=== PATIENT | female | born 1985 | race Caucasian/White ===

== ENCOUNTER 2018-01-20 07:45 | Emergency (ER) | payer OTHER ==
[~2018-01-20] VITALS: Ht 162.6 cm; Wt 54.4 kg
[~2018-01-20 07:45] MED LIST: ACET1TAB43 PO; DOCU100C37 PO; FERR325T18 PO; IBUP-1773 PO; PREN1TAB71 PO
[2018-01-20] MEDS ORDERED: methylPREDNISolone 125 MG (Solu-MEDROL) VIAL IVP ONE (08:15)
[2018-01-20] MEDS ORDERED: raNItidine 50 MG/2 ML INJ (ZANTAC) IV ONE (08:15)
[2018-01-20] MEDS ORDERED: diphenhydrAMINE 50 MG/ML INJ (BENADRYL) IVP ONE (08:15)
[2018-01-20 08:31] LABS: BASOPHILS # (AUTO) 0.1 10^3/uL (0.0-0.1); BASOPHILS % (AUTO) 1 % (0-10); EOSINOPHILS # (AUTO) 0.1 10^3/uL (0.0-0.3); EOSINOPHILS % (AUTO) 1 % (0-10); HEMATOCRIT 35 % (35-52); LYMPHOCYTES # (AUTO) 1.6 X 10^3 (1.0-4.0); LYMPHOCYTES % (AUTO) 20 % (12-44); MEAN CORPUSCULAR HEMOGLOBIN 33 PG (25-34); MEAN CORPUSCULAR HGB CONC 34 G/DL (32-36); MEAN CORPUSCULAR VOLUME 96 FL (80-99); MEAN PLATELET VOLUME 10.9 FL (7.4-10.4); MONOCYTES # (AUTO) 0.5 X 10^3 (0.0-1.0); MONOCYTES % (AUTO) 6 % (0-12); NEUTROPHILS # (AUTO) 5.8 X 10^3 (1.8-7.8); NEUTROPHILS % (AUTO) 73 % (42-75); PLATELET COUNT 170 10^3/uL (130-400); RED BLOOD COUNT 3.66 10^6/uL (4.35-5.85)
[2018-01-20 08:50] LABS: ALANINE AMINOTRANSFERASE 17 U/L (0-55); ALBUMIN 3.8 GM/DL (3.2-4.5); ALKALINE PHOSPHATASE 54 U/L (40-136); BILIRUBIN,TOTAL 2.4 MG/DL (0.1-1.0); BUN/CREATININE RATIO 19; CALCIUM 8.8 MG/DL (8.5-10.1); CARBON DIOXIDE 26 MMOL/L (21-32); CHLORIDE 102 MMOL/L (98-107); CREATININE SERUM 0.81 MG/DL (0.60-1.30); GFR ESTIMATED > 60; GLUCOSE 100 MG/DL (70-105); POTASSIUM 4.1 MMOL/L (3.6-5.0); SODIUM 135 MMOL/L (135-145); TOTAL PROTEIN 6.5 GM/DL (6.4-8.2)
[2018-01-20 09:55] LABS: BILIRUBIN,URINE NEGATIVE (NEGATIVE); CLARITY,URINE CLEAR; COLOR,URINE AMBER; GLUCOSE, URINE (UA) NEGATIVE (NEGATIVE); KETONES,URINE NEGATIVE (NEGATIVE); LEUKOCYTE ESTERASE ,URINE 1+ (NEGATIVE); NITRITE,URINE NEGATIVE (NEGATIVE); PH,URINE 6 (5-9); PROTEIN,URINE 1+ (NEGATIVE); UROBILINOGEN,URINE NORMAL (NORMAL)
[2018-01-20 10:03] LABS: BACTERIA,URINE MODERATE /HPF; RBC,URINE RARE /HPF; WBC,URINE RARE /HPF
[2018-01-20] MEDS ORDERED: NS IV 1000 ML 1,000 ML IV ONE (10:41)
--- NOTE | 2018-01-20 11:20 | ED General ---
General Chief Complaint: Allergic Reaction Stated Complaint: THROAT ISSUES,FACE SWELLING Nursing Triage Note: Pt ambulated to room nine w/o difficulty. Reports being bitten by a spider last thursday and was put on Amoxacillin, then began to experience a rash and itching of the hands. PCP swithced pt to another antibiotic and PO predisone, rash of the lower extremities broke out directly after. Pt presents today verbailizing throat discomfort and facial/periorbital swelling. Nursing Sepsis Screen: No Definite Risk Source of Information: Patient Exam Limitations: No Limitations History of Present Illness Date Seen by Provider: Jan 20, 2018 Time Seen by Provider: 08:00 Initial Comments This 32-year-old young lady presents to the emergency room with complaints of lip, face, and throat swelling. She was bitten by a brown recluse 9 days ago. She was started on Augmentin at that time but developed swelling, particularly on her lower extremities, and was therefore treated with prednisone. Her antibiotic was changed to Bactrim. She then developed a rash on her leg which has improved. Today she woke with the swelling of the face, throat, and lips as well as abdominal discomfort. She took Benadryl 25 mg before coming to the emergency room. She has no prior history of allergies or angioedema. Allergies and Home Medications Allergies Coded Allergies: amoxicillin (Verified Allergy, Severe, angioedema, 01/20/18) Questionable allergy as patient was exposed to brown recluse of venom, Augmentin, and Bactrim in close proximity. clavulanic acid (Verified Allergy, Severe, angioedema, 01/20/18) Questionable allergy as patient was exposed to brown recluse of venom, Augmentin, and Bactrim in close proximity. sulfamethoxazole (Verified Allergy, Severe, Angioedema, 01/20/18) Questionable allergy as patient was exposed to brown recluse venom, Augmentin, and Bactrim in close proximity. trimethoprim (Verified Allergy, Severe, Angioedema, 01/20/18) Questionable allergy as patient was exposed to brown recluse venom, Augmentin, and Bactrim in close proximity. Uncoded Allergies: brown recluse venum (Allergy, Severe, Angioedema, 01/20/18) Questionable allergy as patient was exposed to brown recluse of venom, Augmentin, and Bactrim in close proximity. Home Medications Acetaminophen with Codeine 1 Each Tablet, 1-2 TAB PO Q4H PRN for MODERATE TO SEVERE PAIN Prescribed by: YANNI SCOTT on 11/11/15 1031 Docusate Sodium 100 Mg Capsule, 100 MG PO BID Prescribed by: YANNI SCOTT on 11/11/15 1031 Epinephrine 0.3 Mg/0.3 Ml Auto.injct, 0.3 MG IJ UD PRN for SHORTNESS OF BREATH For severe allergic reaction involving swelling of the throat or difficulty breathing Prescribed by: KATI ALEXANDRA on 01/20/18 1131 Famotidine 20 Mg Tablet, 20 MG PO BID Prescribed by: KATI ALEXANDRA on 01/20/18 1131 Ferrous Sulfate 325 Mg Tablet, 325 MG PO DAILY Prescribed by: YANNI SCOTT on 11/11/15 1031 Ibuprofen 600 Mg Tablet, 600 MG PO Q6H Prescribed by: YANNI SCOTT on 11/11/15 1031 Prednisone 10 Mg Tab, 3 TAB PO UD Take 3 daily for 3 days, then 2 daily for 3 days, then 1 daily for 3 days Prescribed by: KATI ALEXANDRA on 01/20/18 1131 Vit/Iron Fumarate/FA 1 Each Tablet, 1 EACH PO DAILY, (Reported) Patient Home Medication List Home Medication List Reviewed: Yes Review of Systems Constitutional: no symptoms reported EENTM: see HPI Respiratory: no symptoms reported Cardiovascular: no symptoms reported Gastrointestinal: see HPI Genitourinary: no symptoms reported : No Musculoskeletal: no symptoms reported Skin: see HPI Psychiatric/Neurological: No Symptoms Reported Hematologic/Lymphatic: No Symptoms Reported Immunological/Allergic: see HPI Past [id number] Hx Past Med/Social Hx: Reviewed and Corrections made Patient Social History Former Smoker, Quit: Jul 12, 2012 Recent Foreign Travel: No Contact w/Someone Who Travel: No Recent Infectious Disease Expo: No Recent Hopitalizations: No Physical Abuse: No Sexual Abuse: No Mistreated: No Fear: No Immunizations Up To Date Tetanus Booster (TDap): Less than 5yrs Seasonal Allergies Seasonal Allergies: No Past Medical History Surgeries: No Respiratory: No Currently Using CPAP: No Currently Using BIPAP: No Cardiac: No Neurological: No : No Hx : 1 Hx Para: 1 Hx Total # of Abortions (Sp): 0 Reproductive Disorders: No Sexually Transmitted Disease: No HIV/AIDS: No Genitourinary: No Gastrointestinal: No Musculoskeletal: No Endocrine: No HEENT: No Cancer: No Psychosocial: No Nursing Suicide Risk Score: 1 Integumentary: Yes Recent Skin Changes (brown recluse bite right lateral thigh) Adverse Reaction/Blood Tranf: No Family Medical History Reviewed Nursing Family Hx Thyroid disease G8 SISTER (SISTER THYROID CANCER AT AGE 19YRS) Physical Exam Vital Signs Vital Signs - First Documented 01/20/18 07:50 Temp 97.8 Pulse 91 Resp 20 B/P (MAP) 108/70 (83) Pulse Ox 100 O2 Delivery Room Air Capillary Refill : Less Than 3 Seconds Height, Weight, BMI Height: 5'4.00" Weight: 120lbs. 0.0oz. [id number]; 27.0 BMI Method:Estimated General Appearance: No Apparent Distress, WD/WN HEENT: PERRL/EOMI, Other (edema of the lips, eyelids, and soft palate noted) Neck: Normal Inspection Respiratory: Lungs Clear, Normal Breath Sounds, No Accessory Muscle Use, No Respiratory Distress Cardiovascular: Regular Rate, Rhythm, No Edema, No Murmur Gastrointestinal: Normal Bowel Sounds, Non Tender, Soft Extremity: Normal Capillary Refill, Normal Inspection, No Pedal Edema Neurologic/Psychiatric: Alert, Oriented x3, No Motor/Sensory Deficits, Normal Mood/Affect, retail cashier II-XII Norm as Tested Skin: Warm/Dry, Other (there is a dusky eschared lesion on the right lateral thigh with surrounding erythema. Appears to be a well-healing spider bite) Progress/Results/Core Measures Suspected Sepsis Recent Fever Within 48 Hours: No Infection Criteria Present: None New/Unexplained Altered Menta: No Sepsis Screen: No Definite Risk SIRS Temperature:97.8 Pulse: 91 Respiratory Rate: 20 Laboratory Tests 01/20/18 08:26: White Blood Count 8.0 Blood Pressure 108 /70 Mean: 83 Laboratory Tests 01/20/18 08:26: Creatinine 0.81, Platelet Count 170, Total Bilirubin 2.4H Results/Orders Lab Results Laboratory Tests Test 01/20/18 08:26 01/20/18 09:43 Range/Units White Blood Count 8.0 4.3-11.0 10^3/uL Red Blood Count 3.66 L 4.35-5.85 10^6/uL Hemoglobin 12.0 11.5-16.0 G/DL Hematocrit 35 35-52 % Mean Corpuscular Volume 96 80-99 FL Mean Corpuscular Hemoglobin 33 25-34 PG Mean Corpuscular Hemoglobin Concent 34 32-36 G/DL Red Cell Distribution Width 12.0 10.0-14.5 % Platelet Count 170 130-400 10^3/uL Mean Platelet Volume 10.9 H 7.4-10.4 FL Neutrophils (%) (Auto) 73 42-75 % Lymphocytes (%) (Auto) 20 12-44 % Monocytes (%) (Auto) 6 0-12 % Eosinophils (%) (Auto) 1 0-10 % Basophils (%) (Auto) 1 0-10 % Neutrophils # (Auto) 5.8 1.8-7.8 X 10^3 Lymphocytes # (Auto) 1.6 1.0-4.0 X 10^3 Monocytes # (Auto) 0.5 0.0-1.0 X 10^3 Eosinophils # (Auto) 0.1 0.0-0.3 10^3/uL Basophils # (Auto) 0.1 0.0-0.1 10^3/uL Sodium Level 135 135-145 MMOL/L Potassium Level 4.1 3.6-5.0 MMOL/L Chloride Level 102 98-107 MMOL/L Carbon Dioxide Level 26 21-32 MMOL/L Anion Gap 7 5-14 MMOL/L Blood Urea Nitrogen 15 7-18 MG/DL Creatinine 0.81 0.60-1.30 MG/DL Estimat Glomerular Filtration Rate > 60 BUN/Creatinine Ratio 19 Glucose Level 100 70-105 MG/DL Calcium Level 8.8 8.5-10.1 MG/DL Total Bilirubin 2.4 H 0.1-1.0 MG/DL Aspartate Amino Transf (AST/SGOT) 18 5-34 U/L Alanine Aminotransferase (ALT/SGPT) 17 0-55 U/L Alkaline Phosphatase 54 40-136 U/L Total Protein 6.5 6.4-8.2 GM/DL Albumin 3.8 3.2-4.5 GM/DL Serum Test, Qualitative NEGATIVE NEGATIVE Urine Color JAMIR H Urine Clarity CLEAR Urine pH 6 5-9 Urine Specific [place] 1.015 L 1.016-1.022 Urine Protein 1+ H NEGATIVE Urine Glucose (UA) NEGATIVE NEGATIVE Urine Ketones NEGATIVE NEGATIVE Urine Nitrite NEGATIVE NEGATIVE Urine Bilirubin NEGATIVE NEGATIVE Urine Urobilinogen NORMAL NORMAL MG/DL Urine Leukocyte Esterase 1+ H NEGATIVE Urine RBC (Auto) 1+ H NEGATIVE Urine RBC RARE /HPF Urine WBC RARE /HPF Urine Squamous Epithelial Cells 2-5 /HPF Urine Crystals NONE /LPF Urine Bacteria MODERATE H /HPF Urine Casts NONE /LPF Urine Mucus SMALL H /LPF Urine Culture Indicated NO Micro Results Microbiology 01/20/18 Urine Culture - Preliminary, Resulted Sent To [facility] My Orders Orders - KATI JACOBS MD Diphenhydramine Injection (Benadryl Inje (01/20/18 08:15) Ranitidine Injection (Zantac Injection) (01/20/18 08:15) Methylprednisolone Sod Succ (Solu-Medrol (01/20/18 08:15) Cbc With Automated Diff (01/20/18 08:07) Comprehensive Metabolic Panel (01/20/18 08:07) Ua Culture If Indicated (01/20/18 08:07) Saline Lock/Iv-Start (01/20/18 08:07) Hcg,Qualitative Serum (01/20/18 08:07) Urine Culture (01/20/18 10:12) Ns Iv 1000 Ml (Sodium Chloride 0.9%) (01/20/18 10:41) Medications Given in ED Current Medications Medications Dose Ordered Sig/Bettina Route Start Time Stop Time Status Last Admin Dose Admin Diphenhydramine HCl 12.5 mg ONCE ONCE IVP 01/20/18 08:15 01/20/18 08:16 DC 01/20/18 08:38 12.5 MG Methylprednisolone Sodium Succinate 125 mg ONCE ONCE IVP 01/20/18 08:15 01/20/18 08:16 DC 01/20/18 08:39 125 MG Ranitidine HCl 50 mg ONCE ONCE IV 01/20/18 08:15 01/20/18 08:16 DC 01/20/18 08:38 50 MG Sodium Chloride 1,000 ml @ 0 mls/hr Q0M ONCE IV 01/20/18 10:41 01/20/18 10:42 DC 01/20/18 11:00 1,000 MLS/HR Vital Signs/I&O 01/20/18 01/20/18 07:50 12:11 Temp 97.8 98.2 Pulse 91 87 Resp 20 18 B/P (MAP) 108/70 (83) 104/71 Pulse Ox 100 100 O2 Delivery Room Air Room Air Capillary Refill : Less Than 3 Seconds Blood Pressure Mean: 83 Progress Note : Progress Note Patient was treated with Solu-Medrol, Benadryl, ranitidine, and IV fluids with gradual improvement. I suspect the angioedema was caused by the venom from the brown recluse bite. The angioedema was likely temporarily suppressed with the short course of steroids. I'm less suspicious of an antibiotic allergy. However, because of the serious risk of angioedema both antibiotics have also been added to her allergy list. EpiPen was prescribed. See discharge instructions. Departure Impression Primary Impression: Angioedema Qualified Codes: T78.3XXD - Angioneurotic edema, subsequent encounter Additional Impression: Brown recluse spider bite Qualified Codes: T63.331D - Toxic effect of venom of brown recluse spider, accidental (unintentional), subsequent encounter Disposition: HOME, SELF-CARE Condition: Improved Departure-Patient Inst. Decision time for Depature: 11:20 Referrals: NO,LOCAL PHYSICIAN (PCP/Family) Primary Care Physician Patient Instructions: Angioedema, Spider Bites Add. Discharge Instructions: Keep Benadryl on hand and take up to 50 mg every 4 hours as needed for rebounding allergic reaction. For severe reaction that involves swelling of the throat or difficulty breathing use your EpiPen and present immediately to emergency services. Continue Pepcid for at least one week and complete your steroid taper. Return to care if you have any other problems or concerns. Follow-up with your primary care provider soon as possible. Consider consulting with an courtesy bus driver for allergy testing. In the meantime, please let health care providers know you have had a reaction to Augmentin, Bactrim, and/or brown recluse venom. All discharge instructions reviewed with patient and/or family. Voiced understanding. Scripts Epinephrine (Epipen 2-Raulito) 0.3 Mg/0.3 Ml Auto.injct 0.3 MG IJ UD PRN for SHORTNESS OF BREATH, #1 ML For severe allergic reaction involving swelling of the throat or difficulty breathing Prov: KATI JACOBS MD 01/20/18 Prednisone (Prednisone) 10 Mg Tab 3 TAB PO UD, #18 TAB Take 3 daily for 3 days, then 2 daily for 3 days, then 1 daily for 3 days Prov: KATI JACOBS MD 01/20/18 Famotidine (Pepcid) 20 Mg Tablet 20 MG PO BID, #20 TAB Prov: KATI JACOBS MD 01/20/18 KATI JACOBS MD Jan 20, 2018 11:20
[2018-01-20] MEDS ORDERED: PRD10T PO (11:31)
[2018-01-20] MEDS ORDERED: FAMO-119 PO (11:31)
[2018-01-20] MEDS ORDERED: EPIN0.3P3 IJ (11:31)
[2018-01-20 12:11] VITALS: BP 104/71
== END 2018-01-20 12:15 | disposition home or self-care (01) ==
LOC: EDUNIT# 07:45 → ER 07:47
DX: T78.3XXD Angioneurotic edema, subsequent encounter (principal); T63.331D Toxic effect of venom of brown recluse spider, accidental (unintentional), subsequent encounter; Z88.0 Allergy status to penicillin; Z88.2 Allergy status to sulfonamides; Z88.8 Allergy status to other drugs, medicaments and biological substances; Z88.7 Allergy status to serum and vaccine; Z79.52 Long term (current) use of systemic steroids
CPT/HCPCS: 36415; 80053; 81000; 84703; 85025; 87088; 96361; 96374; 96375

== ENCOUNTER → 2019-05-27 | Outpatient (CLI) | payer OTHER ==
[~2019-05-27] MED LIST changes: +EPIN0.3P3 IJ; +FAMO-119 PO; +PRD10T PO
--- NOTE | 2019-05-27 12:32 | Diagnostic Imaging Report ---
INDICATION: survey. TECHNIQUE: Multiple real-time grayscale images were obtained over the gravid uterus. COMPARISON: There are no prior studies available for comparison. FINDINGS: There is a single live fetus in breech presentation. heart motion was noted and a rate of 135 BPM was recorded. There were no abnormalities identified. The placenta is posterior and there appears to be a marginal previa. The amniotic fluid volume is within normal limits. The growth parameters are fairly uniform. The cervix was visualized but was not measured. The cervix does not seem to be abnormally short however. Biometrical measurements are as follows: Biparietal 4.48 cm, age 19 weeks 4 days. Head circumference 17.65 cm, age 20 weeks 1 days. Abdominal circumference 14.84 cm, age 20 weeks 1 days. Femur length 3.30 cm, age 20 weeks 3 days. Sonographic estimate age: 20 weeks 1 days. Sonographic estimated date of delivery: 10/13/19. Estimated Weight: 337 gm (+/- 49 gm). LMP percentile: 56%. heart rate: 135 beats per minute. number: 1 of 1. IMPRESSION: 1. There is a single live fetus in breech presentation approximately 20 weeks 1 day gestation. The EDC is October 13, 2019. 2. There were no abnormalities identified. 3. The placenta is posterior and there appears to be a marginal previa. A short-term (4-6 week) follow-up exam would be recommended for further evaluation of the position of the placenta. 4. The growth parameters are fairly uniform. Dictated by: Dictated on workstation # [id number]
== END ==
LOC: RAD 10:21
PROVIDERS: ATTEND Nurse Practitioner Women's Health
DX: Z34.92 Encounter for supervision of normal pregnancy, unspecified, second trimester (principal); Z3A.20 20 weeks gestation of pregnancy
CPT/HCPCS: 76805

== ENCOUNTER → 2019-07-13 | Outpatient (CLI) | payer BC, OTHER ==
--- NOTE | 2019-07-13 14:09 | Diagnostic Imaging Report ---
INDICATION: Follow-up low-lying placenta. TECHNIQUE: Multiple real-time grayscale images were obtained over the gravid uterus. COMPARISON: 05/27/2019. FINDINGS: There is a single live fetus in a breech presentation. heart rate was recorded at 153 BPM. Placenta is posterior and low-lying. The tip of the placenta is approximately 2 cm from the cervix. Amniotic fluid volume appears normal with amniotic fluid index of 17.1 cm. IMPRESSION: Low lying posterior placenta. No placenta previa is seen. Dictated by: Dictated on workstation # [id number]
== END ==
LOC: RAD 11:34
PROVIDERS: ATTEND Obstetrics & Gynecology
DX: O44.42 Low lying placenta NOS or without hemorrhage, second trimester (principal)
CPT/HCPCS: 76816

== ENCOUNTER → 2019-08-17 | Outpatient (CLI) | payer BC ==
--- NOTE | 2019-08-17 15:20 | Diagnostic Imaging Report ---
INDICATION: Low-lying placenta, follow-up. TECHNIQUE: Multiple real-time grayscale images were obtained over the gravid uterus. COMPARISON: 07/13/2019. FINDINGS: There is a single live fetus in a cephalic presentation. heart rate was recorded at 136 BPM. Placenta is posterior. Placental tip is approximately 2.6 cm from the internal cervical os. Previous measurement was approximately 2.1 cm. Cervical length is 4.4 cm. Amniotic fluid index is 17.5 cm. IMPRESSION: Low-lying placenta. No definite marginal or complete placenta previa is seen. Dictated by: Dictated on workstation # [id number]
== END ==
LOC: RAD 13:49
PROVIDERS: ATTEND Obstetrics & Gynecology
DX: O44.43 Low lying placenta NOS or without hemorrhage, third trimester (principal)
CPT/HCPCS: 76816

== ENCOUNTER 2019-10-07 07:00 | Inpatient (IN) | payer BC ==
[2019-10-07] VITALS (40 sets, daily range): BP systolic 96–123; BP diastolic 46–71
[~2019-10-07] VITALS: Ht 165.1 cm; Wt 71.2 kg
[2019-10-07] MEDS ORDERED: D5 LR IV SOLUTION 1,000 ML IV ONE (07:17)
[2019-10-07] MEDS ORDERED: D5 LR IV SOLUTION 1,000 ML IV SCH (07:19)
[2019-10-07] MEDS ORDERED: MINERAL OIL CONCENTRATE 99.9% 15 ML UDC TOP PRN (07:30)
--- NOTE | 2019-10-07 07:49 | NUR ---
JENNA GOMEZ presented to unit via AMBULATORY from HOME, accompanied by , FOR SCHEDULED INDUCTION. JENNA GOMEZ weighed, gowned, voided, and to bed. EFHM and TOCO applied, VS taken. JENNA GOMEZ oriented to bed controls, call light, TV, heat, and A/C controls. Addendum: 10/07/19 at 0824 by KATYA REED RN Wrong time. Pt arrived at 0710.
--- NOTE | 2019-10-07 07:49 | NUR ---
Dr Green called with induction orders to start pitocin. Dr Green will come by after clinic around 1000 to AROM. Pt informed of POC.
[2019-10-07] MEDS ORDERED: OXYTOCIN PRE-MIX DRIP 500 ML IV ONE (07:53)
[2019-10-07 07:54] LABS: BASOPHILS % (AUTO) 0 % (0-10); EOSINOPHILS % (AUTO) 0 % (0-10); HEMATOCRIT 31 % (35-52); HEMOGLOBIN 10.4 G/DL (11.5-16.0); LYMPHOCYTES # (AUTO) 1.3 X 10^3 (1.0-4.0); LYMPHOCYTES % (AUTO) 18 % (12-44); MEAN CORPUSCULAR HEMOGLOBIN 32 PG (25-34); MEAN CORPUSCULAR HGB CONC 34 G/DL (32-36); MEAN CORPUSCULAR VOLUME 96 FL (80-99); MEAN PLATELET VOLUME 11.6 FL (7.4-10.4); MONOCYTES # (AUTO) 0.7 X 10^3 (0.0-1.0); MONOCYTES % (AUTO) 9 % (0-12); NEUTROPHILS # (AUTO) 5.6 X 10^3 (1.8-7.8); NEUTROPHILS % (AUTO) 73 % (42-75); PLATELET COUNT 124 10^3/uL (130-400); RED CELL DISTRIBUTION WIDTH 13.7 % (10.0-14.5); WHITE BLOOD COUNT 7.6 10^3/uL (4.3-11.0)
[2019-10-07] MEDS ORDERED: OXYTOCIN PRE-MIX DRIP 500 ML IV SCH ×2 (08:01→15:55)
[2019-10-07] MEDS ORDERED: fentaNYL 2 mcg/ml BUPIVA 0.125 100 ML ONE (12:04)
--- NOTE | 2019-10-07 12:14 | NUR ---
anesthesia called at this time for epidural placement.
[2019-10-07] MEDS ORDERED: BUPIVACAINE 0.25% 30 ML (SENSORCAINE) VIAL ONE (12:16)
[2019-10-07] MEDS ORDERED: fentaNYL INJECTION 100 MCG/2 ML AMP ONE (12:16)
[2019-10-07] MEDS ORDERED: LACTATED RINGERS 1,000 ML IV NR (12:57)
[2019-10-07] MEDS ORDERED: METOCLOPRAMIDE INJ 10 MG/2 ML (REGLAN) IV PRN (13:00)
[2019-10-07] MEDS ORDERED: diphenhydrAMINE 50 MG/ML INJ (BENADRYL) IV PRN (13:00)
[2019-10-07] MEDS ORDERED: ONDANSETRON 4 MG/2 ML (SDV) Z0FRAN IV PRN (13:00)
[2019-10-07] MEDS ORDERED: NALOXONE 0.4 MG/ML 1 ML (NARCAN) VIAL IV PRN ×2 (13:00)
[2019-10-07] MEDS ORDERED: EPIDURAL (fentaNYL 2 MCG/ML BUPIVA 0.125%)100 ML BAG EPI PRN (13:00)
[2019-10-07] MEDS ORDERED: CATHETER FLUSH 10 ML SYR IV SCH ×2 (14:00→22:00)
--- NOTE | 2019-10-07 14:07 | NUR ---
dr perry updated on pt report. pt is comfortable with epidural, sve /-2, pitocin remains at 20. fht occasional variables with UC- will try to readjust position.
[2019-10-07] MEDS ORDERED: MISOPROSTOL 200 MCG (CYTOTEC) TABLET ONE (15:09)
--- NOTE | 2019-10-07 15:53 | Operative Report ---
Operative Report Date of Procedure/Surgery Oct 07, 2019 Surgeon (s) MIKE DE SOUZA DO Landscape Foreman (s): NA Post-Operative Diagnosis vaginal delivery Procedure Performed vaginal delivery Description of Procedure Anesthesia Type: EPI Estimated blood loss (mL): 400 Specimen(s) collected/removed none Description of the Procedure Vag Delivery Note Vag Delivery Note Date of Delivery: 10/07/19 Preoperative Diagnosis: Kaleigh Paul is a 31 /Para 3 /1 ,Gestational Age 39 1/7 weeks Postoperative Diagnosis: Same Surgeon: MIKE DE SOUZA Anesthesia: epidural Delivery Type: vaginal Estimated Blood Loss: 400 ml Complications: None Condition: Stable Description of Procedure: The patient is a 31 year old female who presented for induction of labor. She was admitted and informed consent was obtained. Her labor course was remarkable for pitocin/epidural and AROM. She progressed to complete dilatation and began to push. She was then set up for delivery. The 's head was delivered atraumatically in the JIMBO position. The shoulders and remainder of the infant's body were then delivered without difficulty. Upon delivery, the head was held below the level of the perineum and the mouth and nares were bulb suctioned. The cord was doubly clamped and cut and the was handed off to the pediatric staff. An intact placenta with 3-vessel cord delivered via Celestina and there was found to be minimal bleeding.~ Vigorous fundal massage was performed and the fundus was found to be firm. IV oxytocin was given. Examination of the vagina and perineum revealed a 1st degree laceration not repaired. Following the repair, sponge, instrument and needle counts were correct. Mom and baby were both in stable condition in the labor suite. Vitals - Labs Labs Laboratory Tests 10/07/19 14:00: White Blood Count 11.5H, Red Blood Count 4.88, Hemoglobin 13.8, Hematocrit 41, Mean Corpuscular Volume 84, Mean Corpuscular Hemoglobin 28, Mean Corpuscular Hemoglobin Concent 34, Red Cell Distribution Width 15.2H, Platelet Count 190, Mean Platelet Volume 12.1H, Neutrophils (%) (Auto) 72, Lymphocytes (%) (Auto) 21, Monocytes (%) (Auto) 6, Eosinophils (%) (Auto) 1, Basophils (%) (Auto) 0, Neutrophils # (Auto) 8.3H, Lymphocytes # (Auto) 2.4, Monocytes # (Auto) 0.7, Eosinophils # (Auto) 0.1, Basophils # (Auto) 0.0, Sodium Level 134L, Potassium Level 4.2, Chloride Level 103, Carbon Dioxide Level 19L, Anion Gap 12, Blood Urea Nitrogen 9, Creatinine 0.79, Estimat Glomerular Filtration Rate > 60, BUN/Creatinine Ratio 11, Glucose Level 67L, Calcium Level 8.9, Corrected Calcium 9.5, Total Bilirubin 0.2, Aspartate Amino Transf (AST/SGOT) 22, Alanine Aminotransferase (ALT/SGPT) 14, Alkaline Phosphatase 95, Total Protein 6.5, Albumin 3.3 MIKE DE SOUZA DO Oct 07, 2019 15:36 Findings of the Procedure Findings: Viable male , apgars 8/9, weight 6#10 ounces Lacerations: 1st degree laceration; not repaired Intact placenta with 3 vessel cord. No nuchal cord, body cord or shoulder dystocia Cytotec 800 mcg placed for hemorrhage prophylaxis Allergies and Home Medications Allergies Coded Allergies: amoxicillin (Verified Allergy, Severe, angioedema, 01/20/18) Questionable allergy as patient was exposed to brown recluse of venom, Augmentin, and Bactrim in close proximity. clavulanic acid (Verified Allergy, Severe, angioedema, 01/20/18) Questionable allergy as patient was exposed to brown recluse of venom, Augmentin, and Bactrim in close proximity. sulfamethoxazole (Verified Allergy, Severe, Angioedema, 01/20/18) Questionable allergy as patient was exposed to brown recluse venom, Augmentin, and Bactrim in close proximity. trimethoprim (Verified Allergy, Severe, Angioedema, 01/20/18) Questionable allergy as patient was exposed to brown recluse venom, Augmentin, and Bactrim in close proximity. Uncoded Allergies: brown recluse venum (Allergy, Severe, Angioedema, 01/20/18) Questionable allergy as patient was exposed to brown recluse of venom, Augmentin, and Bactrim in close proximity. Home Medications Vit/Iron Fumarate/FA 1 Each Tablet, 1 EACH PO DAILY, (Reported) Patient Home Medication List Home Medication List Reviewed: Yes MIKE DE SOUZA DO Oct 07, 2019 15:53
[2019-10-07] MEDS ORDERED: MEASLES,MUMPS,RUBELLA 1 EA INJ SQ ONE (16:00)
[2019-10-07] MEDS ORDERED: TETANUS,DIPTH,PERTUSS P/F (BOOSTRIX) 0.5 ML VIAL IM ONE (16:00)
[2019-10-07] MEDS: IBUPROFEN 600 MG (MOTRIN) TAB PO SCH (18:06)
[2019-10-07] MEDS: WITCH HAZEL(TUCKS) 40 EA JAR TOP PRN (18:07)
[2019-10-07] MEDS: BENZOCAINE/MENTHOL (DERMOPLAST) 60 ML CAN TP PRN (18:07)
--- NOTE | 2019-10-07 18:30 | NUR ---
1520: recovery period begins at this time. fundus firm, midline, 1 below umbilicus, light bleeding. pericare done by this rn, linens changed. pt denies needs at this time. fob/ at bedside. call light within reach. 1535: fundus firm, level with umbilicus, midline, light bleeding. pt denies needs at this time. remains at bedside. call light within reach. 1550: fundus firm, level with umbilicus, midline, light bleeding. pt denies needs at this time. remains at bedside. call light within reach. pt holding infant, bottle feeding. 1605: fundus firm, level with umbilicus, midline, light bleeding. pt denies needs at this time. remains at bedside. call light within reach. 1620: fundus firm, level with umbilicus, midline, light bleeding. pt denies needs at this time. remains at bedside. call light within reach. 1650: fundus firm, level with umbilicus, midline, light bleeding. pt denies needs at this time. remains at bedside. call light within reach. 1710: Recovery period ends. Pt unable to lift left leg. rn will continue to reevaluate for transfer. 1750: left leg remains heavy, unable to lift. pt eating dinner at this time. rn will reevaluate. 1820: Pt able to lift leg off of bed without assistance. pericare by this RN. fundus firm, midline, level with umbilicus, scant bleeding. pt assisted to wheelchair. 1830: Pt transferred to room 309 by wheelchair at this time. fob pushes in infant crib.
[2019-10-07] MEDS: DOCUSATE SODIUM 100 MG (COLACE) CAP PO SCH (20:32)
[2019-10-08] MEDS: IBUPROFEN 600 MG (MOTRIN) TAB PO SCH ×4 (00:12→17:17)
[2019-10-08 04:11] VITALS: BP 102/60
[2019-10-08] MEDS: ACETAMINOPHEN 500 MG TAB (TYLENOL) PO SCH ×2 (04:11→11:45)
--- NOTE | 2019-10-08 05:02 | Postpartum Progress Note ---
Note Note Day # 1 s/p Subjective: Patient is without complaints. Ambulating, voiding. Tolerating a regular diet w ithout nausea or vomiting. Normal lochia. Pain is well controlled with oral pain medications. breast feeding. [] Objective: Laboratory Tests Test 10/07/19 07:45 10/08/19 04:18 Range/Units White Blood Count 7.6 10.6 4.3-11.0 10^3/uL Red Blood Count 3.21 L 3.11 L 4.35-5.85 10^6/uL Hemoglobin 10.4 L 10.2 L 11.5-16.0 G/DL Hematocrit 31 L 30 L 35-52 % Mean Corpuscular Volume 96 97 80-99 FL Mean Corpuscular Hemoglobin 32 33 25-34 PG Mean Corpuscular Hemoglobin Concent 34 34 32-36 G/DL Red Cell Distribution Width 13.7 13.4 10.0-14.5 % Platelet Count 124 L 119 L 130-400 10^3/uL Mean Platelet Volume 11.6 H 12.1 H 7.4-10.4 FL Neutrophils (%) (Auto) 73 75 42-75 % Lymphocytes (%) (Auto) 18 17 12-44 % Monocytes (%) (Auto) 9 8 0-12 % Eosinophils (%) (Auto) 0 0 0-10 % Basophils (%) (Auto) 0 0 0-10 % Neutrophils # (Auto) 5.6 8.0 H 1.8-7.8 X 10^3 Lymphocytes # (Auto) 1.3 1.8 1.0-4.0 X 10^3 Monocytes # (Auto) 0.7 0.9 0.0-1.0 X 10^3 Eosinophils # (Auto) 0.0 0.0 0.0-0.3 10^3/uL Basophils # (Auto) 0.0 0.0 0.0-0.1 10^3/uL Laboratory Tests Test 10/07/19 07:45 10/08/19 04:18 Range/Units White Blood Count 7.6 4.3-11.0 10^3/uL Red Blood Count 3.21 L 4.35-5.85 10^6/uL Hemoglobin 10.4 L 11.5-16.0 G/DL Hematocrit 31 L 35-52 % Mean Corpuscular Volume 96 80-99 FL Mean Corpuscular Hemoglobin 32 25-34 PG Mean Corpuscular Hemoglobin Concent 34 32-36 G/DL Red Cell Distribution Width 13.7 10.0-14.5 % Platelet Count 124 L 130-400 10^3/uL Mean Platelet Volume 11.6 H 7.4-10.4 FL Neutrophils (%) (Auto) 73 42-75 % Lymphocytes (%) (Auto) 18 12-44 % Monocytes (%) (Auto) 9 0-12 % Eosinophils (%) (Auto) 0 0-10 % Basophils (%) (Auto) 0 0-10 % Neutrophils # (Auto) 5.6 1.8-7.8 X 10^3 Lymphocytes # (Auto) 1.3 1.0-4.0 X 10^3 Monocytes # (Auto) 0.7 0.0-1.0 X 10^3 Eosinophils # (Auto) 0.0 0.0-0.3 10^3/uL Basophils # (Auto) 0.0 0.0-0.1 10^3/uL 10/07/19 10/07/19 10/07/19 10/07/19 17:05 17:20 17:35 21:30 Temp 36.4 Pulse 61 57 60 61 Resp 16 18 B/P (MAP) 121/53 (75) 112/60 (77) 102/60 (74) 117/71 (86) Pulse Ox 100 100 O2 Delivery Room Air Room Air Room Air Room Air 10/08/19 04:11 Temp 36.4 Pulse 56 Resp 18 B/P (MAP) 102/60 (74) Pulse Ox 99 O2 Delivery Room Air 10/08/19 00:00 Intake Total 2000 ml Output Total 300 ml Balance 1700 ml Physical Exam: General - Alert and oriented, no apparent distress Abdomen - Soft, appropriately tender to palpation, non-distended, fundus firm at umbilicus Extremities - no edema, negative Nitesh's bilaterally [] Assessment: [] post- day # [], status post [] vaginal delivery. Recovering well, hemodynamically stable [] Plan: Routine care. Encourage breast feeding. Encourage ambulation. Ferrous sulfate supplementation. Plan for discharge [] Vitals - Labs Vital Signs - I&O Vital Signs Date Time Temp Pulse Resp B/P (MAP) Pulse Ox O2 Delivery O2 Flow Rate FiO2 10/08/19 04:11 36.4 56 18 102/60 (74) 99 Room Air 10/07/19 21:30 36.4 61 18 117/71 (86) 100 Room Air 10/07/19 17:35 60 102/60 (74) Room Air 10/07/19 17:20 57 16 112/60 (77) Room Air 10/07/19 17:05 61 121/53 (75) 100 Room Air 10/07/19 16:50 36.1 63 100/46 (64) 100 Room Air 10/07/19 16:20 53 113/67 (82) 99 Room Air 10/07/19 16:05 63 113/64 (80) 99 Room Air 10/07/19 15:50 68 112/64 (80) 98 Room Air 10/07/19 15:35 68 110/64 (79) 98 Room Air 10/07/19 15:20 36.0 70 109/63 (78) 99 Room Air 10/07/19 15:00 66 106/59 (75) Room Air 10/07/19 14:45 67 18 97/59 (72) Room Air 10/07/19 14:30 62 96/57 (70) Room Air 10/07/19 14:15 70 100/63 (75) Room Air 10/07/19 14:00 82 100/59 (73) Room Air 10/07/19 13:45 36.5 82 16 100/59 (73) Room Air 10/07/19 13:30 67 102/61 (75) Room Air 10/07/19 13:15 67 103/55 (71) Room Air 10/07/19 13:00 76 96/61 (73) Room Air 10/07/19 12:45 76 106/56 (73) Room Air 10/07/19 12:30 75 114/63 (80) 99 Room Air 10/07/19 12:15 69 109/58 (75) Room Air 10/07/19 12:00 72 107/59 (75) Room Air 10/07/19 11:45 64 106/63 (77) Room Air 10/07/19 11:30 36.6 70 16 103/64 (77) Room Air 10/07/19 11:15 71 107/69 (82) Room Air 10/07/19 11:00 71 106/64 (78) Room Air 10/07/19 10:45 73 101/64 (76) Room Air 10/07/19 10:30 75 102/62 (75) Room Air 10/07/19 10:15 74 105/66 (79) Room Air 10/07/19 10:06 36.6 82 16 98 Room Air 10/07/19 10:00 76 100/58 (72) Room Air 10/07/19 09:45 36.8 71 16 99/61 (74) Room Air 10/07/19 09:30 69 103/66 (78) Room Air 10/07/19 09:15 73 106/65 (79) Room Air 10/07/19 09:00 73 99/58 (72) Room Air 10/07/19 08:45 75 106/62 (77) Room Air 10/07/19 08:30 82 104/61 (75) Room Air 10/07/19 08:10 80 108/59 (75) Room Air 10/07/19 07:30 36.6 82 16 123/66 (85) 98 Room Air I & O 10/08/19 07:00 Intake Total 2000 ml Output Total 300 ml Balance 1700 ml Labs Laboratory Tests 10/07/19 07:45: White Blood Count 7.6, Red Blood Count 3.21L, Hemoglobin 10.4L, Hematocrit 31L, Mean Corpuscular Volume 96, Mean Corpuscular Hemoglobin 32, Mean Corpuscular Hemoglobin Concent 34, Red Cell Distribution Width 13.7, Platelet Count 124L, Mean Platelet Volume 11.6H, Neutrophils (%) (Auto) 73, Lymphocytes (%) (Auto) 18, Monocytes (%) (Auto) 9, Eosinophils (%) (Auto) 0, Basophils (%) (Auto) 0, Neutrophils # (Auto) 5.6, Lymphocytes # (Auto) 1.3, Monocytes # (Auto) 0.7, Eosinophils # (Auto) 0.0, Basophils # (Auto) 0.0 10/08/19 04:18: MIKE DE SOUZA DO Oct 08, 2019 05:02
[2019-10-08 05:03] LABS: BASOPHILS % (AUTO) 0 % (0-10); EOSINOPHILS % (AUTO) 0 % (0-10); HEMATOCRIT 30 % (35-52); HEMOGLOBIN 10.2 G/DL (11.5-16.0); LYMPHOCYTES # (AUTO) 1.8 X 10^3 (1.0-4.0); LYMPHOCYTES % (AUTO) 17 % (12-44); MEAN CORPUSCULAR HEMOGLOBIN 33 PG (25-34); MEAN CORPUSCULAR HGB CONC 34 G/DL (32-36); MEAN CORPUSCULAR VOLUME 97 FL (80-99); MEAN PLATELET VOLUME 12.1 FL (7.4-10.4); MONOCYTES # (AUTO) 0.9 X 10^3 (0.0-1.0); MONOCYTES % (AUTO) 8 % (0-12); NEUTROPHILS % (AUTO) 75 % (42-75); PLATELET COUNT 119 10^3/uL (130-400); RED CELL DISTRIBUTION WIDTH 13.4 % (10.0-14.5); WHITE BLOOD COUNT 10.6 10^3/uL (4.3-11.0)
[2019-10-08 06:29] VITALS: BP 95/62
[2019-10-08] MEDS ORDERED: IBUP-844 PO (06:33)
[2019-10-08] MEDS ORDERED: ACET-93 PO (06:33)
--- NOTE | 2019-10-08 06:34 | Discharge Inst-Women's Service ---
Discharge Inst-Women's Serv Depart Medication/Instructions New, Converted or Re-Newed RX: Transmitted to Pharmacy Instructions post vaginal delivery instructions Final Diagnosis vaginal delivery Problems Reviewed?: Yes Consults/Follow Up Additional Follow Up: Yes (6 week post exam) Activity Activity: Activity as Tolerated Driving Instructions: You May Drive NO SMOKING: NO SMOKING Nothing Inside Vagina: No Douching, No [place], No Tampons Diet Discharge Diet: No Restrictions Symptoms to Report to : Swelling Increased, Bleeding Excessive, Pain Increased, Fever Over 101 Degrees F, Vaginal Bleeding Increase, Cramps in Feet or Legs, Vaginal Discharge Foul For Any Problems or Questions: Contact Your Physician MIKE DE SOUZA DO Oct 08, 2019 06:34
[2019-10-08] MEDS: DOCUSATE SODIUM 100 MG (COLACE) CAP PO SCH (07:51)
[2019-10-08] MEDS ORDERED: FERROUS SULF 325 MG (IRON) TAB PO SCH (08:00)
[2019-10-08 10:01] VITALS: BP 107/63
[2019-10-08 15:19] VITALS: BP 121/67
--- NOTE | 2019-10-08 15:19 | NUR ---
PT UP IN ROOM. VS OBTAINED. MORE TUCKS AND DERMOPLAST PROVIDED PER REQUEST, NO FURTHER NEEDS VOICED. S/O AT THE BEDSIDE.
[2019-10-08] MEDS: BENZOCAINE/MENTHOL (DERMOPLAST) 60 ML CAN TP PRN (15:25)
[2019-10-08] MEDS: WITCH HAZEL(TUCKS) 40 EA JAR TOP PRN (15:26)
--- NOTE | 2019-10-08 17:15 | NUR ---
DISCHARGE PAPERS PROVIDED AND REVIEWED WITH PT, PT VERBALIZES UNDERSTANDING AND DENIES ANY NEEDS OR QUESTIONS AT THIS TIME. PAPER SIGNED.
--- NOTE | 2019-10-08 17:30 | NUR ---
PT DISCHARGED FROM -309 TO PERSONAL AUTO VIA W/C IN STABLE CONDITION ACC BY THIS RN AND S/O. INFANT IN PT'S ARMS.
--- NOTE | 2019-10-08 18:02 | Anesthesia-Regional Post-Op ---
Regional Patient Condition Mental Status: Alert, Oriented x3 Circulation: Same as Pre-Op Headache: Absent Sensation: Full Recovery Motor Block: Absent Post Op Complications Complications None Follow Up Care/Instructions Patient Instructions None needed. Anesthesia/Patient Condition Patient was doing well, no complaints, stable vital signs, no apparent adverse anesthesia problems. No complications reported per nursing, thus patient discharged to home at 1730. ROSANNE DOWLING CRNA Oct 08, 2019 18:02
== END 2019-10-08 17:30 | disposition home or self-care (01) | DRG 807 ==
LOC: LDRP 07:02 → WS 15:16 → LDRP 15:16
PROVIDERS: ADMIT Obstetrics & Gynecology; ATTEND Obstetrics & Gynecology
PROC: 10E0XZZ Delivery of Products of Conception, External Approach (ICD-10-PCS; principal; 2019-10-07)
PROC: 0HQ9XZZ Repair Perineum Skin, External Approach (ICD-10-PCS; 2019-10-07)
PROC: 3E033VJ Introduction of Other Hormone into Peripheral Vein, Percutaneous Approach (ICD-10-PCS; 2019-10-07)
DX: O70.0 First degree perineal laceration during delivery (principal); Z37.0 Single live birth; Z3A.39 39 weeks gestation of pregnancy
CPT/HCPCS: 36415; 85025; 86850; 86900; 86901